=== PATIENT | female | born 1955 ===

== ENCOUNTER 2019-05-26 06:39 | Day surgery (SDC) | payer MEDICARE ==
[~2019-05-26] VITALS: Ht 172.7 cm; Wt 91.6 kg
[~2019-05-26 06:39] MED LIST: ATOR10 PO; CARV6.25 PO; LOSA25 PO; METF500 PO; MICROZIDE12.5 M1 PO; PIOG15 PO
== END 2019-05-26 08:42 | disposition home or self-care (01) ==
LOC: ORSCSDS 06:39
PROVIDERS: Surgery
PROC: 0DBM8ZX Excision of Descending Colon, Via Natural or Artificial Opening Endoscopic, Diagnostic (ICD-10-PCS; principal; 2019-05-26 08:00)
PROC: 0DBH8ZX Excision of Cecum, Via Natural or Artificial Opening Endoscopic, Diagnostic (ICD-10-PCS; principal; 2019-05-26 08:00)
DX: Z12.11 Encounter for screening for malignant neoplasm of colon (principal); D12.0 Benign neoplasm of cecum; K63.5 Polyp of colon; Z86.010 Personal history of colon polyps; E11.9 Type 2 diabetes mellitus without complications; E78.5 Hyperlipidemia, unspecified; I10 Essential (primary) hypertension; Z79.84 Long term (current) use of oral hypoglycemic drugs; Z79.899 Other long term (current) drug therapy
CPT/HCPCS: 82947; 88305; J0330; J0461; J2001; J2405; J2704